=== PATIENT | female | born 1995 | race Two or more races ===

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

== ENCOUNTER 2017-05-31 18:54 | Emergency (ER) | payer BC, OTHER ==
[~2017-05-31] VITALS: Ht 162.6 cm; Wt 63.5 kg
[2017-05-31] MEDS ORDERED: HYDROCODONE/APAP 5/325MG 1 EACH TABLET PO ONE (19:30)
[2017-05-31] MEDS ORDERED: HYDROCODONE/APAP 5/325MG 1 EACH TABLET ONE (19:31)
[2017-05-31 19:45] VITALS: BP 124/80
== END 2017-05-31 19:46 | disposition home or self-care (01) ==
LOC: ER 18:59
DX: S40.012A Contusion of left shoulder, initial encounter (principal); S80.12XA Contusion of left lower leg, initial encounter; J45.909 Unspecified asthma, uncomplicated; V49.49XA Driver injured in collision with other motor vehicles in traffic accident, initial encounter; Y93.89 Activity, other specified; Y92.413 State road as the place of occurrence of the external cause; Y99.8 Other external cause status
CPT/HCPCS: A4606; Z7610

== ENCOUNTER 2018-03-04 01:02 | Emergency (ER) | payer BC, OTHER ==
[~2018-03-04] VITALS: Ht 165.1 cm; Wt 68.0 kg
--- NOTE | 2018-03-04 01:13 | NUR ---
BIBFAMILY C/O N/V X 1 HOUR. PATIENT STATES SHE IS 15 WEEKS . A/O X4 AND ABLE TO MAKE NEEDS KNOWN. VSS WNL. AWAITING MD AMADOR.
[2018-03-04 02:40] VITALS: BP 114/64
--- NOTE | 2018-03-04 02:40 | NUR ---
Patient discharged to home in stable condition. Written and verbal after care instructions given. Patient verbalizes understanding of instruction.
== END 2018-03-04 02:41 | disposition home or self-care (01) ==
LOC: ER 01:02
DX: O26.891 Other specified pregnancy related conditions, first trimester (principal); R11.0 Nausea; R10.13 Epigastric pain; O99.511 Diseases of the respiratory system complicating pregnancy, first trimester; J45.909 Unspecified asthma, uncomplicated; Z3A.13 13 weeks gestation of pregnancy; Z88.0 Allergy status to penicillin; Z88.2 Allergy status to sulfonamides
CPT/HCPCS: 99281; A4606; Z7610; Z7502

== ENCOUNTER 2018-05-13 19:21 | Emergency (ER) | payer OTHER ==
[~2018-05-13] VITALS: Ht 165.1 cm; Wt 68.0 kg
--- NOTE | 2018-05-13 20:10 | NUR ---
Pt BIBSELF FROM HOME, WITH MOTHER AT BEDSIDE. Pt IS A/OX4, VERBAL, ABLE TO MAKE NEEDS KNOWN. Pt CAME IN C/O COUGH WITH CONGESTION, & OTHER FLU LIKE SYMPTOMS. Pt SEEN BY MD AT BEDSIDE. WILL CONTINUE TO MONITOR Pt's CONDITION. VS STABLE.
[2018-05-13] MEDS ORDERED: IV NS 0.9% 1,000 ML BAG IV ONE (20:30)
[2018-05-13] MEDS ORDERED: ACETAMINOPHEN 325 MG TABLET PO ONE (20:30)
--- NOTE | 2018-05-13 20:43 | NUR ---
Pt REFUSED MEDS & IV HYDRATION. REQUESTED TO GO HOME. Addendum: 05/13/18 at 2042 by ANTONIO NOTIFIED . AWARE.
--- NOTE | 2018-05-13 20:49 | NUR ---
Patient discharged to home in stable condition. Written and verbal after care instructions given. Patient verbalizes understanding of instruction. Patient left facility on foot with steady gait. No s/s of acute distress or sob noted. No iv access on pt. VS stable.
[2018-05-13 23:49] VITALS: BP 126/64
== END 2018-05-13 23:49 | disposition home or self-care (01) ==
LOC: ER 19:25
DX: O99.512 Diseases of the respiratory system complicating pregnancy, second trimester (principal); J06.9 Acute upper respiratory infection, unspecified; J45.909 Unspecified asthma, uncomplicated; Z88.2 Allergy status to sulfonamides; Z88.0 Allergy status to penicillin